=== PATIENT | male | born 1940 | race Caucasian/White ===

== ENCOUNTER → 2016-10-31 | Outpatient (CLI) | payer MEDICARE, BC ==
[~2016-10-31] MED LIST: ASPIRIN PO; ATENOLOL PO; IBUPROFEN PO; LIPITOR PO; PRILOSEC PO; TYLENOL #3 PO; VIAGRA PO; ZESTORETIC 20/21 TAB PO; [UNRECOGNIZED DRUG - REMARK]
--- NOTE | ~2016-10-31 | ST ---
Unit #: [id number] #: [id number] Patient: YO LAI [id number] [facility] [address], [place] [address] [id number] O MR#: [id number] NAME: YO LAI : 1940 SEX: M STUDY DATE/TIME: 10/31/2016 UNIT: [facility] ROOM: STUDY DESCRIPTION: Cardiac stress test. Attending Physician: Christopher Pereira M.D. Referring Physician: Christopher Pereira M.D. Primary Care Physician: No Primary Care Physician CARDIOLOGY REPORT EXAM Exercise cardiac stress test. PROCEDURE Baseline EKG normal sinus rhythm with ventricular rate 73 beats per minute, left atrial abnormality, slow R wave progression, early repolarization. The patient walked on the treadmill for 6 minutes utilizing Ankit protocol, achieving a workload of 7.0 METS. Next, 96% of the maximum target was achieved at 137 beats per minute, with a maximum blood pressure response of 150/99 mmHg. EKG during the test was equivocal to baseline. No acute ischemic changes. The patient had no complaints of chest pain, palpitations or dizziness. Had increased shortness of breath and fatigue which resolved in the recovery phase. IMPRESSION 1. Functional class 3 with a work load of 7.0 METS. 2. The patient walked for 6 minutes utilizing Ankit protocol, achieving a maximum target heart rate of 137 beats per minute with a blood pressure response of 150/99 mmHg. 3. The patient had no complaints of chest pain, palpitations or dizziness. 4. The patient had some nonspecific ST-T wave abnormalities and also showed some nondiagnostic Q waves in the inferolateral leads which were different from baseline. 5. Cardiolite was injected after Lexiscan within the first minute of the test. Radionuclide test pending. Please correlate with nuclear images. Dictated by... Randi Freeman A.P.R.N. for Lennie Robertson TD: 10/31/2016 08:50 JOB #: [id number] CC: [facility] Unit #: [id number] #: [id number] Patient: YO LAI CARDIOLOGY REPORT Page 1 of 1 X Randi Freeman APRN CARDIOLOGY REPORT
--- NOTE | ~2016-10-31 | TH ---
Unit #: [id number] #: [id number] Patient: YO LAI [id number] [address] [address] [id number] O MR#: [id number] NAME: YO LAI : 1940 SEX: M STUDY DATE/TIME: UNIT: [facility] ROOM: STUDY DESCRIPTION: Nuclear Study Attending Physician: Christopher Pereira M.D. Referring Physician: Christopher Pereira M.D. Primary Care Physician: No Primary Care Physician CARDIOLOGY REPORT EXAM Exercise Cardiolite Stress Test - Nuclear Portion PROCEDURE Using technetium 99m labeled Cardiolite, rest and stress SPECT images were obtained. Multiple SPECT images were obtained in various views including horizontal and vertical long axis and short axis views of the left ventricle. Images were obtained by gated SPECT method. The patient was administered 11.62 mCi of Cardiolite at rest. The patient was administered 35.3 mCi of Cardiolite at peak exercise. Total exercise time is 6 minutes. On the stress images, there is normal perfusion noted. The rest images show normal perfusion. Comparing rest and stress images, there is no stress-induced ischemia noted. The left ventricular ejection fraction is calculated to be 62%. There is no focal wall motion abnormality seen. CONCLUSION 1. No stress-induced ischemia noted. 2. The left ventricular ejection fraction is calculated to be 62%. 3. There is no focal wall motion abnormality seen. 4. The left ventricular size is small. 5. Normal exercise Cardiolite stress test. Dictated by... Lennie Robertson TD: 10/31/2016 11:39 JOB #: [id number] Unit #: [id number] #: [id number] Patient: YO LAI CARDIOLOGY REPORT Page 1 of 1 X Guerline Fay MD <ELECTRONICALLY SIGNED> 01/18/17 1423 CARDIOLOGY REPORT
== END | disposition home or self-care (01) ==
LOC: CNUC 06:09
DX: R07.9 Chest pain, unspecified (principal); R94.39 Abnormal result of other cardiovascular function study; E78.5 Hyperlipidemia, unspecified; R06.02 Shortness of breath
CPT/HCPCS: 78452; 93017; A9500